=== PATIENT | male | born 1965 | race Caucasian/White ===

== ENCOUNTER 2023-04-14 23:45 | Emergency (ER) | payer SELFPAY ==
[~2023-04-14] VITALS: Ht 182.9 cm; Wt 99.8 kg
--- NOTE | 2023-04-14 23:45 | NUR ---
PT [employer] [place] [employer] FOR PRE BOOK MEDICAL CLEARANCE
[2023-04-14 23:54] VITALS: BP 179/89; PULSE 44; RESP 20; TEMP 96.2; O2SAT 96
--- NOTE | 2023-04-15 | NUR ---
Dr. Lord examining the pt at Chair C with jhonny freeman
--- NOTE | 2023-04-15 00:10 | NUR ---
PT TAKEN TO ER BED 1
--- NOTE | 2023-04-15 00:20 | NUR ---
PT TAKEN TO CT VIA [facility]
[2023-04-15 00:32] LABS: BASOPHILS # (AUTO) 0.1 K/uL (0.00-0.22); BASOPHILS % (AUTO) 1.1 % (0.0-2.0); EOSINOPHILS # (AUTO) 0.2 K/uL (0-0.4); EOSINOPHILS % (AUTO) 1.4 % (0.0-4.0); HEMATOCRIT 43.5 % (36-52); HEMOGLOBIN 14.5 g/dL (12.0-18.0); LYMPHOCYTES # (AUTO) 2.2 K/uL (2.0-11.5); LYMPHOCYTES % (AUTO) 18.2 % (20.5-51.1); MEAN CORPUSCULAR HEMOGLOBIN 29 pg (27-31); MEAN CORPUSCULAR HGB CONC 33 g/dL (33-37); MEAN CORPUSCULAR VOLUME 87.1 fL (80-94); MONOCYTES # (AUTO) 0.9 K/uL (0.8-1.0); MONOCYTES % (AUTO) 7.2 % (1.7-9.3); NEUTROPHILS # (AUTO) 8.7 K/uL (1.8-7.7); NEUTROPHILS % (AUTO) 72.1 % (42.2-75.2); PLATELET COUNT (AUTO) 127 K/uL (140-450); RED BLOOD CELL COUNT(AUTO) 4.99 MIL/uL (4.20-6.10); RED CELL DISTRIBUTION WIDTH 13.8 % (11.6-13.7); WHITE BLOOD COUNT (AUTO) 12.1 K/uL (4.8-10.8)
[2023-04-15 00:45] LABS: ALBUMIN 3.4 g/dL (3.4-5.0); ANION GAP 15.7 (8-16); ASPARTATE AMINOTRANSFERASE 14 U/L (15-37); CARBON DIOXIDE 23.5 mmol/L (21-32); CHLORIDE 94 mmol/L (98-107); CREATININE 0.9 mg/dL (0.6-1.3); GFR ARICAN-AMERICAN 112 mL/min (>90); POTASSIUM 4.2 mmol/L (3.5-5.1); SODIUM SERUM 129 mmol/L (136-145); TOTAL BILIRUBIN 0.3 mg/dL (0.0-1.0); UREA NITROGEN, BLOOD 19 mg/dL (7-18)
--- NOTE | 2023-04-15 00:45 | NUR ---
Melanie grajeda in EDM - 04/15/23 at 0213 by [email or web address] pt reports he cant feel his left leg. informed dr. george. dr. george
--- NOTE | 2023-04-15 00:50 | NUR ---
pt reports that he can't feel his left leg. informed dr. george.
[2023-04-15 00:51] LABS: GLUCOSE 406 mg/dL (74-106)
[2023-04-15] MEDS ORDERED: NACL 0.9% 2,000 ML IV ONE (00:55)
--- NOTE | 2023-04-15 01:15 | NUR ---
swelling of lower lips noted. informed dr. george. dr. george verbalized to order benadryl 25mg
[2023-04-15] MEDS ORDERED: diphenhydrAMINE 50 MG/ML VIAL IVP ONE (01:20)
--- NOTE | 2023-04-15 01:32 | NUR ---
pt resting on bed. a/ox4. not in distress. chest rise and fall symmetrical. on monitor. oriented to call light and within reach. bed locked to lowest position. siderails x2 for safety. placed on moderate high back rest. with [place] [employer] at bedside
[2023-04-15 01:38] LABS: APPEARANCE,URINE CLEAR (CLEAR); BILIRUBIN,URINE NEGATIVE (NEGATIVE); BLOOD, URINE TRACE-I (NEGATIVE); COLOR,URINE YELLOW (YELLOW); LEUKOCYTE ESTERASE ,URINE NEGATIVE (NEGATIVE); NITRITE, URINE NEGATIVE (NEGATIVE); PH,URINE 5.5 (5.0-9.0); UGLUCOSE 3+ (NEGATIVE)
[2023-04-15 01:40] LABS: RBC,URINE 0-5 /HPF (0-5)
--- NOTE | 2023-04-15 01:48 | NUR ---
neurologist vitrually talking to the patient
--- NOTE | 2023-04-15 03:18 | NUR ---
pt stated that he want to leave the hospital. informed dr. george
--- NOTE | 2023-04-15 03:19 | NUR ---
dr. george at bedside talking to the pt.
[2023-04-15 03:20] VITALS: BP 158/80; PULSE 45; RESP 12; TEMP 97.7; O2SAT 100
--- NOTE | 2023-04-15 03:20 | NUR ---
Patient does not wish to proceed with medical care recommended by dr. george. Patient given information related to possible complications, up to and including , which could occur as a result of leaving hospital at this time. Patient verbalizes understanding of risks involved leaving against medical advice. Patient has signed AMA form.
== END 2023-04-15 03:20 | disposition left against medical advice (07) ==
LOC: MED 23:45
DX: E11.65 Type 2 diabetes mellitus with hyperglycemia (principal); E87.1 Hypo-osmolality and hyponatremia; E86.0 Dehydration; R53.1 Weakness; R20.0 Anesthesia of skin; R29.810 Facial weakness; Z86.73 Personal history of transient ischemic attack (TIA), and cerebral infarction without residual deficits; Z79.4 Long term (current) use of insulin; Z79.899 Other long term (current) drug therapy
CPT/HCPCS: 36415; 70450; 70496; 70498; 71045; 80053; 81001; 82948; 84484; 85025; 86886; 86900; 86901; 93005; 96361; 96374; 99291; J1200; J7030; Q0092; Q9967